=== PATIENT | male | born 1930 | race Caucasian/White ===

== ENCOUNTER 2018-01-23 18:06 | Inpatient (IN) | payer MEDICARE ==
[~2018-01-23] VITALS: Ht 188 cm; Wt 75.0 kg
[2018-01-23] MEDS: oseltamivir 30mg capsule PO SCH ×2 (08:00→20:00)
[~2018-01-23 18:06] MED LIST: AMIO200T57 PO; APIX2.5T PO; BESI5DRO EACHEYE; BROM3DRO RIGHTEYE; CARV-50 PO; CLOP75TA33 PO; FINA5TAB42 PO; FURO20TA4 PO; GEMF600T3 PO; LACT1CAP65 PO; LEVO50TA8 PO; LORA0.5T PO; MIRT15TA8 PO; PANT40TA4 PO; PENT400T2 PO; POTA10CA44 PO; PRED5DRO7 EACHEYE; TAMS0.4C32 PO; TEMA15CA5 PO; [UNRECOGNIZED DRUG - CODE] PO
[2018-01-23] MEDS ORDERED: normal saline 1000ML IV soln IV ONE (20:35)
[2018-01-23] MEDS ORDERED: levoFLOXACIN-Levaquin 750MG/D5 150 ML IV STA (20:37)
[2018-01-23] MEDS ORDERED: normal saline 1000ml 1,000 ML IV ONE (20:45)
[2018-01-23] MEDS ORDERED: acetaminophen 325mg tablet PO ONE (20:45)
[2018-01-23 21:01] LABS: BASOPHILS % (AUTO) 0.1 % (0-1); EOSINOPHILS # (AUTO) 0.2 X10'3 (0-0.9); EOSINOPHILS % (AUTO) 1.4 % (0-6); HEMATOCRIT 38.3 % (42.0-52.0); HEMOGLOBIN 13.1 g/dl (14.0-17.9); LYMPHOCYTES # (AUTO) 0.8 X10'3 (1.1-4.8); MEAN CORPUSCULAR HEMOGLOBIN 31.6 PG (27.0-31.0); MEAN CORPUSCULAR HGB CONC 34.3 % (33.0-36.5); MEAN CORPUSCULAR VOLUME 92.2 FL (78-98); MEAN PLATELET VOLUME 8.9 FL (7.4-10.4); MONOCYTES # (AUTO) 0.5 X10'3 (0-0.9); MONOCYTES % (AUTO) 4.4 % (2-12); NEUTROPHILS # (AUTO) 10.1 X10'3 (1.8-7.7); NEUTROPHILS % (AUTO) 87.1 % (42-75); PLATELET COUNT 219 X10'3 (140-440); RED BLOOD COUNT 4.15 X10'6 (4.70-6.10); RED CELL DISTRIBUTION WIDTH 16.9 % (11.5-14.5); WHITE BLOOD COUNT 11.6 X10'3 (4.5-11.0)
[2018-01-23 21:15] LABS: PARTIAL THROMBOPLASTIN TIME 27 SECONDS (22-32); PROTHROMBIN TIME 10.7 SECONDS (9.0-12.0)
[2018-01-23 21:17] LABS: ALANINE AMINOTRANSFERASE 38 U/L (12-78); ALBUMIN 3.7 G/DL (3.4-5.0); ALBUMIN/GLOBULIN RATIO 0.9 (1.1-1.5); ALKALINE PHOSPHATASE 159 IU/L (46-116); ANION GAP 10 (8-16); ASPARTATE AMINO TRANSFERASE 33 U/L (10-37); BILIRUBIN,TOTAL 0.4 MG/DL (0.1-1.0); BLOOD UREA NITROGEN 20 MG/DL (7-18); BUN/CREATININE RATIO 15.4 (5.4-32.0); CALCIUM 8.7 MG/DL (8.5-10.1); CHLORIDE 103 MMOL/L (99-107); GLUCOSE 118 MG/DL (70-104); MAGNESIUM 1.9 MG/DL (1.5-2.4); POTASSIUM 3.7 MMOL/L (3.5-5.1); SODIUM 142 MMOL/L (135-145); TOTAL CARBON DIOXIDE 29.3 MMOL/L (24-32); TOTAL PROTEIN 7.7 G/DL (6.4-8.2); eGFR 52 ML/MIN
[2018-01-23] MEDS ORDERED: AMIO200T57 PO (22:53)
[2018-01-23] MEDS ORDERED: DIGO125T PO (23:00)
[2018-01-23] MEDS ORDERED: FISH12002 PO (23:00)
[2018-01-23] MEDS ORDERED: GABA-532 PO (23:00)
[2018-01-23] MEDS ORDERED: CARV-50 PO (23:00)
[2018-01-23] MEDS ORDERED: GABA600T2 PO (23:00)
[2018-01-23] MEDS ORDERED: FINA5TAB11 PO (23:00)
[2018-01-23] MEDS ORDERED: MULT-1085 PO (23:00)
[2018-01-23] MEDS ORDERED: TEMA30CA5 PO (23:00)
[2018-01-23] MEDS ORDERED: ASPI-611 PO (23:00)
[2018-01-23] MEDS ORDERED: acetaminophen 325mg tablet PO PRN ×2 (23:05)
[2018-01-23] MEDS ORDERED: ondansetron/PF 4mg/2ml inj IV PRN (23:05)
[2018-01-23] MEDS: normal saline 1000ml 1,000 ML IV SCH (23:10)
[2018-01-23] MEDS: OMEGA-3/DHA/EPA/FISH OIL 1 EACH CAPSULE.DR PO SCH (23:25)
[2018-01-23] MEDS ORDERED: oseltamivir phos 75mg capsule PO ONE (23:40)
[2018-01-24] MEDS ORDERED: oseltamivir phos 75mg capsule PO ONE (01:27)
[2018-01-24 02:43] LABS: CLARITY,URINE Clear (Clear); COLOR,URINE Yellow (Yellow); GLUCOSE, URINE Negative (Neg); KETONES,URINE Negative (Neg); LEUKOCYTE ESTERASE ,URINE Negative (Neg); NITRITES, URINE Negative (Neg); OCCULT BLOOD,URINE Negative (Neg); PROTEIN,URINE Negative (Neg)
[2018-01-24 02:53] LABS: UA COLLECTION TYPE URINAL
[2018-01-24 06:31] LABS: BASOPHILS % (AUTO) 0.6 % (0-1); EOSINOPHILS % (AUTO) 0.2 % (0-6); HEMATOCRIT 33.1 % (42.0-52.0); HEMOGLOBIN 11.2 g/dl (14.0-17.9); LYMPHOCYTES # (AUTO) 0.9 X10'3 (1.1-4.8); LYMPHOCYTES % (AUTO) 11.8 % (21-51); MEAN CORPUSCULAR HEMOGLOBIN 31.4 PG (27.0-31.0); MEAN CORPUSCULAR HGB CONC 33.8 % (33.0-36.5); MEAN CORPUSCULAR VOLUME 92.9 FL (78-98); MEAN PLATELET VOLUME 8.9 FL (7.4-10.4); MONOCYTES # (AUTO) 0.5 X10'3 (0-0.9); MONOCYTES % (AUTO) 6.2 % (2-12); NEUTROPHILS # (AUTO) 6.3 X10'3 (1.8-7.7); NEUTROPHILS % (AUTO) 81.2 % (42-75); PLATELET COUNT 180 X10'3 (140-440); RED BLOOD COUNT 3.57 X10'6 (4.70-6.10); RED CELL DISTRIBUTION WIDTH 16.5 % (11.5-14.5); WHITE BLOOD COUNT 7.8 X10'3 (4.5-11.0)
[2018-01-24 06:43] LABS: ALBUMIN 2.7 G/DL (3.4-5.0); ANION GAP 9 (8-16); BLOOD UREA NITROGEN 17 MG/DL (7-18); CALCIUM 8.1 MG/DL (8.5-10.1); CHLORIDE 107 MMOL/L (99-107); CREATININE 1.06 MG/DL (0.60-1.10); GLUCOSE 120 MG/DL (70-104); POTASSIUM 3.3 MMOL/L (3.5-5.1); SODIUM 142 MMOL/L (135-145); TOTAL CARBON DIOXIDE 26.5 MMOL/L (24-32); eGFR 66 ML/MIN
[2018-01-24 07:30] VITALS: BP 151/66
[2018-01-24] MEDS: lactobacillus rhamnosus 10,000 MMU CELLS/CAPSULE PO SCH ×2 (08:00→20:03)
[2018-01-24 10:00] VITALS: BP 137/93
[2018-01-24] MEDS: levoTHYROXINE 25mcg tablet PO SCH (10:39)
[2018-01-24] MEDS: aspirin 81mg tablet.DR PO SCH (10:40)
[2018-01-24] MEDS: amiodarone 200mg tablet PO SCH ×2 (10:40→20:03)
[2018-01-24] MEDS: OMEGA-3/DHA/EPA/FISH OIL 1 EACH CAPSULE.DR PO SCH (10:40)
[2018-01-24] MEDS: carVEDilol 12.5mg tablet PO SCH ×2 (10:40→20:05)
[2018-01-24] MEDS: finasteride 5mg tablet PO SCH (10:41)
[2018-01-24] MEDS: gemfibrozil 600mg tablet PO SCH ×2 (10:41→20:05)
[2018-01-24] MEDS: clopidogrel 75mg tablet PO SCH (10:41)
[2018-01-24] MEDS: pantoprazole 40mg Tablet.DR PO SCH (10:42)
[2018-01-24] MEDS: digoxin 125mcg (0.125mg) tablet PO SCH (10:56)
[2018-01-24] MEDS: benzocaine/menthol oral lozeng 1 EACH BOX MM PRN ×2 (11:37→11:38)
[2018-01-24] MEDS: oseltamivir 30mg capsule PO SCH ×2 (11:37→20:05)
[2018-01-24 18:00] VITALS: BP 144/51
[2018-01-24] MEDS ORDERED: potassium Cl 40MEQ/NS 500ml 500 ML IV PRN ×2 (18:55)
[2018-01-24] MEDS ORDERED: magnesium Cl slow-release 64mg tablet PO PRN (18:55)
[2018-01-24] MEDS ORDERED: potassium Cl 20 mEq SR tablet PO PRN (18:55)
[2018-01-24] MEDS ORDERED: magnesium 4gm in 100ml NS 100 ML IV PRN (18:55)
[2018-01-24] MEDS ORDERED: magnesium 2GM in 50ml NS 50 ML IV PRN (18:55)
[2018-01-24] MEDS: normal saline 1000ml 1,000 ML IV SCH (20:03)
[2018-01-24] MEDS: potassium Cl 20 mEq SR tablet PO PRN (20:04)
[2018-01-24] MEDS: mirtazapine 15mg tablet PO SCH (20:05)
[2018-01-24] MEDS ORDERED: levoFLOXACIN-Levaquin 500mg/D5 100 ML IV SCH (21:00)
[2018-01-24 22:00] VITALS: BP 160/58
[2018-01-25] MEDS ORDERED: Melatonin 3mg tablet PO PRN (00:45)
[2018-01-25] MEDS: potassium Cl 20 mEq SR tablet PO PRN (01:33)
[2018-01-25] MEDS ORDERED: metoclopramide 5 mg/ml inj IV PRN (03:20)
[2018-01-25 05:31] LABS: BASOPHILS % (AUTO) 0.4 % (0-1); EOSINOPHILS # (AUTO) 0.1 X10'3 (0-0.9); EOSINOPHILS % (AUTO) 1.3 % (0-6); HEMATOCRIT 35.6 % (42.0-52.0); LYMPHOCYTES # (AUTO) 0.6 X10'3 (1.1-4.8); LYMPHOCYTES % (AUTO) 6.1 % (21-51); MEAN CORPUSCULAR HEMOGLOBIN 31.5 PG (27.0-31.0); MEAN CORPUSCULAR HGB CONC 33.8 % (33.0-36.5); MEAN PLATELET VOLUME 8.9 FL (7.4-10.4); MONOCYTES # (AUTO) 0.4 X10'3 (0-0.9); MONOCYTES % (AUTO) 3.9 % (2-12); NEUTROPHILS # (AUTO) 8.6 X10'3 (1.8-7.7); NEUTROPHILS % (AUTO) 88.3 % (42-75); PLATELET COUNT 192 X10'3 (140-440); RED BLOOD COUNT 3.83 X10'6 (4.70-6.10); RED CELL DISTRIBUTION WIDTH 16.1 % (11.5-14.5); WHITE BLOOD COUNT 9.7 X10'3 (4.5-11.0)
[2018-01-25 05:41] LABS: ALBUMIN 2.9 G/DL (3.4-5.0); ANION GAP 8 (8-16); BLOOD UREA NITROGEN 13 MG/DL (7-18); BUN/CREATININE RATIO 11.8 (5.4-32.0); CALCIUM 8.6 MG/DL (8.5-10.1); CHLORIDE 107 MMOL/L (99-107); GLUCOSE 163 MG/DL (70-104); MAGNESIUM 1.8 MG/DL (1.5-2.4); POTASSIUM 4.2 MMOL/L (3.5-5.1); SODIUM 141 MMOL/L (135-145); TOTAL CARBON DIOXIDE 26.3 MMOL/L (24-32); eGFR 63 ML/MIN
[2018-01-25 06:00] VITALS: BP 151/60
[2018-01-25] MEDS ORDERED: gabapentin 300mg capsule PO SCH ×2 (08:00→21:00)
[2018-01-25 10:00] VITALS: BP 132/53
[2018-01-25] MEDS: pantoprazole 40mg Tablet.DR PO SCH (10:13)
[2018-01-25] MEDS: oseltamivir 30mg capsule PO SCH ×2 (10:13→20:46)
[2018-01-25] MEDS: levoTHYROXINE 25mcg tablet PO SCH (10:14)
[2018-01-25] MEDS: lactobacillus rhamnosus 10,000 MMU CELLS/CAPSULE PO SCH ×2 (10:14→20:46)
[2018-01-25] MEDS: aspirin 81mg tablet.DR PO SCH (10:14)
[2018-01-25] MEDS: gabapentin 300mg capsule PO SCH ×2 (10:14→15:21)
[2018-01-25] MEDS: gemfibrozil 600mg tablet PO SCH ×2 (10:14→20:46)
[2018-01-25] MEDS: OMEGA-3/DHA/EPA/FISH OIL 1 EACH CAPSULE.DR PO SCH (10:14)
[2018-01-25] MEDS: carVEDilol 12.5mg tablet PO SCH ×2 (10:15→20:46)
[2018-01-25] MEDS: finasteride 5mg tablet PO SCH (10:15)
[2018-01-25] MEDS: clopidogrel 75mg tablet PO SCH (10:15)
[2018-01-25] MEDS: amiodarone 200mg tablet PO SCH ×2 (10:16→20:46)
[2018-01-25] MEDS: digoxin 125mcg (0.125mg) tablet PO SCH (10:23)
[2018-01-25 18:50] VITALS: BP 144/64
[2018-01-25 20:00] VITALS: BP 151/62
[2018-01-25] MEDS: mirtazapine 15mg tablet PO SCH (20:46)
[2018-01-25] MEDS: normal saline 1000ml 1,000 ML IV SCH (20:47)
[2018-01-26] MEDS: gabapentin 300mg capsule PO SCH ×3 (00:35→20:42)
[2018-01-26 06:00] VITALS: BP 140/69
[2018-01-26 06:02] LABS: BASOPHILS % (AUTO) 0.4 % (0-1); EOSINOPHILS % (AUTO) 0.8 % (0-6); HEMATOCRIT 32.4 % (42.0-52.0); HEMOGLOBIN 11.1 g/dl (14.0-17.9); LYMPHOCYTES # (AUTO) 0.9 X10'3 (1.1-4.8); LYMPHOCYTES % (AUTO) 18.7 % (21-51); MEAN CORPUSCULAR HEMOGLOBIN 31.7 PG (27.0-31.0); MEAN CORPUSCULAR HGB CONC 34.3 % (33.0-36.5); MEAN CORPUSCULAR VOLUME 92.4 FL (78-98); MEAN PLATELET VOLUME 8.8 FL (7.4-10.4); MONOCYTES # (AUTO) 0.5 X10'3 (0-0.9); MONOCYTES % (AUTO) 10.4 % (2-12); NEUTROPHILS # (AUTO) 3.5 X10'3 (1.8-7.7); NEUTROPHILS % (AUTO) 69.7 % (42-75); PLATELET COUNT 176 X10'3 (140-440); RED BLOOD COUNT 3.51 X10'6 (4.70-6.10); WHITE BLOOD COUNT 5.1 X10'3 (4.5-11.0)
[2018-01-26 06:19] LABS: ALBUMIN 2.6 G/DL (3.4-5.0); ANION GAP 8 (8-16); BLOOD UREA NITROGEN 16 MG/DL (7-18); BUN/CREATININE RATIO 14.7 (5.4-32.0); CALCIUM 8.2 MG/DL (8.5-10.1); CHLORIDE 107 MMOL/L (99-107); CREATININE 1.09 MG/DL (0.60-1.10); GLUCOSE 126 MG/DL (70-104); MAGNESIUM 1.9 MG/DL (1.5-2.4); POTASSIUM 3.7 MMOL/L (3.5-5.1); SODIUM 141 MMOL/L (135-145); TOTAL CARBON DIOXIDE 25.7 MMOL/L (24-32); eGFR 64 ML/MIN
[2018-01-26] MEDS: clopidogrel 75mg tablet PO SCH (09:18)
[2018-01-26] MEDS: digoxin 125mcg (0.125mg) tablet PO SCH (09:18)
[2018-01-26] MEDS: finasteride 5mg tablet PO SCH (09:18)
[2018-01-26] MEDS: oseltamivir 30mg capsule PO SCH ×2 (09:18→20:41)
[2018-01-26] MEDS: levoTHYROXINE 25mcg tablet PO SCH (09:18)
[2018-01-26] MEDS: pantoprazole 40mg Tablet.DR PO SCH (09:19)
[2018-01-26] MEDS: aspirin 81mg tablet.DR PO SCH (09:19)
[2018-01-26] MEDS: OMEGA-3/DHA/EPA/FISH OIL 1 EACH CAPSULE.DR PO SCH (09:19)
[2018-01-26] MEDS: lactobacillus rhamnosus 10,000 MMU CELLS/CAPSULE PO SCH ×2 (09:20→20:41)
[2018-01-26] MEDS: carVEDilol 12.5mg tablet PO SCH ×2 (09:20→20:42)
[2018-01-26] MEDS: gemfibrozil 600mg tablet PO SCH ×2 (09:20→20:41)
[2018-01-26] MEDS: amiodarone 200mg tablet PO SCH ×2 (09:20→20:41)
[2018-01-26 10:00] VITALS: BP 132/65
[2018-01-26] MEDS: levoFLOXACIN 500mg tablet PO SCH (11:42)
[2018-01-26 19:13] VITALS: BP 145/61
[2018-01-26] MEDS: mirtazapine 15mg tablet PO SCH (20:40)
[2018-01-26] MEDS: docusate sod 100mg capsule PO SCH (20:41)
[2018-01-26 22:33] VITALS: BP 154/66
[2018-01-27 05:00] VITALS: BP 157/71
[2018-01-27 06:14] LABS: BASOPHILS % (AUTO) 0.6 % (0-1); EOSINOPHILS # (AUTO) 0.1 X10'3 (0-0.9); EOSINOPHILS % (AUTO) 2.2 % (0-6); HEMOGLOBIN 11.5 g/dl (14.0-17.9); LYMPHOCYTES # (AUTO) 1.2 X10'3 (1.1-4.8); LYMPHOCYTES % (AUTO) 36.3 % (21-51); MEAN CORPUSCULAR HEMOGLOBIN 31.3 PG (27.0-31.0); MEAN CORPUSCULAR HGB CONC 33.9 % (33.0-36.5); MEAN CORPUSCULAR VOLUME 92.3 FL (78-98); MEAN PLATELET VOLUME 8.4 FL (7.4-10.4); MONOCYTES # (AUTO) 0.5 X10'3 (0-0.9); MONOCYTES % (AUTO) 13.3 % (2-12); NEUTROPHILS # (AUTO) 1.6 X10'3 (1.8-7.7); NEUTROPHILS % (AUTO) 47.6 % (42-75); PLATELET COUNT 181 X10'3 (140-440); RED BLOOD COUNT 3.68 X10'6 (4.70-6.10); RED CELL DISTRIBUTION WIDTH 16.6 % (11.5-14.5); WHITE BLOOD COUNT 3.4 X10'3 (4.5-11.0)
[2018-01-27 06:19] LABS: ALBUMIN 2.5 G/DL (3.4-5.0); ANION GAP 5 (8-16); BLOOD UREA NITROGEN 15 MG/DL (7-18); CALCIUM 8.4 MG/DL (8.5-10.1); CHLORIDE 111 MMOL/L (99-107); CREATININE 1.07 MG/DL (0.60-1.10); GLUCOSE 132 MG/DL (70-104); MAGNESIUM 2.1 MG/DL (1.5-2.4); POTASSIUM 3.6 MMOL/L (3.5-5.1); SODIUM 145 MMOL/L (135-145); TOTAL CARBON DIOXIDE 29.1 MMOL/L (24-32); eGFR 66 ML/MIN
[2018-01-27] MEDS: normal saline 1000ml 1,000 ML IV SCH ×2 (07:10→10:27)
[2018-01-27] MEDS: aspirin 81mg tablet.DR PO SCH (07:37)
[2018-01-27] MEDS: clopidogrel 75mg tablet PO SCH (07:37)
[2018-01-27] MEDS: finasteride 5mg tablet PO SCH (07:37)
[2018-01-27] MEDS: OMEGA-3/DHA/EPA/FISH OIL 1 EACH CAPSULE.DR PO SCH (07:37)
[2018-01-27] MEDS: levoTHYROXINE 25mcg tablet PO SCH (07:37)
[2018-01-27] MEDS: pantoprazole 40mg Tablet.DR PO SCH (07:38)
[2018-01-27] MEDS: docusate sod 100mg capsule PO SCH ×2 (07:38→20:31)
[2018-01-27] MEDS: oseltamivir 30mg capsule PO SCH (07:38)
[2018-01-27] MEDS: carVEDilol 12.5mg tablet PO SCH ×2 (07:38→20:32)
[2018-01-27] MEDS: amiodarone 200mg tablet PO SCH ×2 (07:38→20:32)
[2018-01-27] MEDS: digoxin 125mcg (0.125mg) tablet PO SCH (07:38)
[2018-01-27] MEDS: gabapentin 300mg capsule PO SCH ×3 (07:38→15:57)
[2018-01-27] MEDS: gemfibrozil 600mg tablet PO SCH ×2 (07:38→20:32)
[2018-01-27] MEDS: lactobacillus rhamnosus 10,000 MMU CELLS/CAPSULE PO SCH ×2 (07:38→20:31)
[2018-01-27 09:56] VITALS: BP 140/59
[2018-01-27] MEDS: levoFLOXACIN 500mg tablet PO SCH (10:27)
[2018-01-27 18:00] VITALS: BP 185/79
[2018-01-27] MEDS: enalaprilat dihydrate 2.5mg/2ml vial IV PRN (18:07)
[2018-01-27] MEDS ORDERED: oseltamivir phos 75mg capsule PO SCH (20:00)
[2018-01-27] MEDS ORDERED: magnesium hydroxide 30ml (MOM) UD suspension PO PRN (20:15)
[2018-01-27] MEDS: mirtazapine 15mg tablet PO SCH (20:32)
[2018-01-27 23:00] VITALS: BP 177/74
[2018-01-28] MEDS: gabapentin 300mg capsule PO SCH ×4 (00:23→23:57)
[2018-01-28] MEDS: normal saline 1000ml 1,000 ML IV SCH ×2 (03:10→06:08)
[2018-01-28] MEDS: ipratropium/albuterol 3ml nebule NEB PRN ×2 (03:37→07:33)
[2018-01-28 05:00] VITALS: BP 136/67
[2018-01-28 05:53] LABS: BASOPHILS % (AUTO) 0.4 % (0-1); EOSINOPHILS # (AUTO) 0.1 X10'3 (0-0.9); EOSINOPHILS % (AUTO) 2.4 % (0-6); HEMATOCRIT 33.1 % (42.0-52.0); HEMOGLOBIN 11.2 g/dl (14.0-17.9); LYMPHOCYTES # (AUTO) 1.2 X10'3 (1.1-4.8); LYMPHOCYTES % (AUTO) 31.1 % (21-51); MEAN CORPUSCULAR HEMOGLOBIN 31.5 PG (27.0-31.0); MEAN CORPUSCULAR HGB CONC 33.9 % (33.0-36.5); MEAN CORPUSCULAR VOLUME 92.8 FL (78-98); MEAN PLATELET VOLUME 8.1 FL (7.4-10.4); MONOCYTES # (AUTO) 0.4 X10'3 (0-0.9); MONOCYTES % (AUTO) 9.7 % (2-12); NEUTROPHILS # (AUTO) 2.3 X10'3 (1.8-7.7); NEUTROPHILS % (AUTO) 56.4 % (42-75); PLATELET COUNT 214 X10'3 (140-440); RED BLOOD COUNT 3.57 X10'6 (4.70-6.10); RED CELL DISTRIBUTION WIDTH 16.4 % (11.5-14.5)
[2018-01-28 06:11] LABS: ALBUMIN 2.6 G/DL (3.4-5.0); ANION GAP 10 (8-16); BLOOD UREA NITROGEN 14 MG/DL (7-18); BUN/CREATININE RATIO 13.7 (5.4-32.0); CALCIUM 8.4 MG/DL (8.5-10.1); CHLORIDE 109 MMOL/L (99-107); CREATININE 1.02 MG/DL (0.60-1.10); GLUCOSE 122 MG/DL (70-104); MAGNESIUM 2.1 MG/DL (1.5-2.4); POTASSIUM 3.7 MMOL/L (3.5-5.1); SODIUM 148 MMOL/L (135-145); TOTAL CARBON DIOXIDE 28.9 MMOL/L (24-32); eGFR 69 ML/MIN
[2018-01-28] MEDS: OMEGA-3/DHA/EPA/FISH OIL 1 EACH CAPSULE.DR PO SCH (07:18)
[2018-01-28] MEDS: amiodarone 200mg tablet PO SCH ×2 (07:18→20:05)
[2018-01-28] MEDS: gemfibrozil 600mg tablet PO SCH ×2 (07:18→20:05)
[2018-01-28] MEDS: levoTHYROXINE 25mcg tablet PO SCH (07:19)
[2018-01-28] MEDS: digoxin 125mcg (0.125mg) tablet PO SCH (07:19)
[2018-01-28] MEDS: docusate sod 100mg capsule PO SCH ×2 (07:19→20:05)
[2018-01-28] MEDS: pantoprazole 40mg Tablet.DR PO SCH (07:19)
[2018-01-28] MEDS: lactobacillus rhamnosus 10,000 MMU CELLS/CAPSULE PO SCH ×2 (07:20→20:05)
[2018-01-28] MEDS: carVEDilol 12.5mg tablet PO SCH ×2 (07:20→20:05)
[2018-01-28] MEDS: finasteride 5mg tablet PO SCH (07:20)
[2018-01-28] MEDS: aspirin 81mg tablet.DR PO SCH (07:20)
[2018-01-28] MEDS: clopidogrel 75mg tablet PO SCH (07:20)
[2018-01-28 10:00] VITALS: BP 116/54
[2018-01-28] MEDS: levoFLOXACIN 500mg tablet PO SCH (11:17)
[2018-01-28] MEDS: enalaprilat dihydrate 2.5mg/2ml vial IV PRN (17:42)
[2018-01-28 18:00] VITALS: BP 176/76
[2018-01-28] MEDS: mirtazapine 15mg tablet PO SCH (20:05)
[2018-01-28 22:00] VITALS: BP 183/78
[2018-01-28 23:26] VITALS: BP 194/80
[2018-01-28] MEDS ORDERED: hydrALAZINE 20mg/ml inj. IV PRN (23:45)
[2018-01-29 00:47] VITALS: BP 132/52
[2018-01-29] MEDS: ipratropium/albuterol 3ml nebule NEB PRN ×2 (01:03→07:51)
[2018-01-29] MEDS: normal saline 1000ml 1,000 ML IV SCH (01:14)
[2018-01-29 02:00] VITALS: BP 145/53
[2018-01-29 05:00] VITALS: BP 142/59
[2018-01-29 06:03] LABS: MAGNESIUM 2.1 MG/DL (1.5-2.4); POTASSIUM 3.6 MMOL/L (3.5-5.1)
[2018-01-29] MEDS: amiodarone 200mg tablet PO SCH (07:24)
[2018-01-29] MEDS: carVEDilol 12.5mg tablet PO SCH (07:24)
[2018-01-29] MEDS: clopidogrel 75mg tablet PO SCH (07:24)
[2018-01-29] MEDS: aspirin 81mg tablet.DR PO SCH (07:24)
[2018-01-29] MEDS: levoTHYROXINE 25mcg tablet PO SCH (07:25)
[2018-01-29] MEDS: gabapentin 300mg capsule PO SCH (07:25)
[2018-01-29] MEDS: OMEGA-3/DHA/EPA/FISH OIL 1 EACH CAPSULE.DR PO SCH (07:25)
[2018-01-29] MEDS: pantoprazole 40mg Tablet.DR PO SCH (07:25)
[2018-01-29] MEDS: finasteride 5mg tablet PO SCH (07:25)
[2018-01-29] MEDS: lactobacillus rhamnosus 10,000 MMU CELLS/CAPSULE PO SCH (07:25)
[2018-01-29] MEDS: digoxin 125mcg (0.125mg) tablet PO SCH (07:25)
[2018-01-29] MEDS: docusate sod 100mg capsule PO SCH (07:26)
[2018-01-29] MEDS: gemfibrozil 600mg tablet PO SCH (07:26)
[2018-01-29 09:04] LABS: ALBUMIN 2.4 G/DL (3.4-5.0); ANION GAP 8 (8-16); BLOOD UREA NITROGEN 16 MG/DL (7-18); CALCIUM 8.1 MG/DL (8.5-10.1); CHLORIDE 109 MMOL/L (99-107); GLUCOSE 115 MG/DL (70-104); SODIUM 145 MMOL/L (135-145); TOTAL CARBON DIOXIDE 27.9 MMOL/L (24-32); eGFR 71 ML/MIN
[2018-01-29 10:00] VITALS: BP 141/63
[2018-01-29] MEDS: levoFLOXACIN 500mg tablet PO SCH (11:41)
== END 2018-01-29 14:10 | DRG 871 ==
LOC: ER 18:07 → ED HOLD 23:02 → ORTHO 4S 01-24 07:30
PROVIDERS: ADMIT Family Medicine; ATTEND Internal Medicine
PROC: 4B02XSZ Measurement of Cardiac Pacemaker, External Approach (ICD-10-PCS; principal; 2018-01-24)
DX: A41.9 Sepsis, unspecified organism (principal); J18.9 Pneumonia, unspecified organism; N18.4 Chronic kidney disease, stage 4 (severe); I48.0 Paroxysmal atrial fibrillation; I69.351 Hemiplegia and hemiparesis following cerebral infarction affecting right dominant side; N17.9 Acute kidney failure, unspecified; J44.0 Chronic obstructive pulmonary disease with (acute) lower respiratory infection; I73.9 Peripheral vascular disease, unspecified; E03.9 Hypothyroidism, unspecified; E78.5 Hyperlipidemia, unspecified; I25.10 Atherosclerotic heart disease of native coronary artery without angina pectoris; I12.9 Hypertensive chronic kidney disease with stage 1 through stage 4 chronic kidney disease, or unspecified chronic kidney disease; J10.1 Influenza due to other identified influenza virus with other respiratory manifestations; E87.6 Hypokalemia; K21.9 Gastro-esophageal reflux disease without esophagitis; F32.9 Major depressive disorder, single episode, unspecified; M10.9 Gout, unspecified; K59.00 Constipation, unspecified; N40.0 Benign prostatic hyperplasia without lower urinary tract symptoms; T50.2X5A Adverse effect of carbonic-anhydrase inhibitors, benzothiadiazides and other diuretics, initial encounter; Z95.5 Presence of coronary angioplasty implant and graft; Z95.0 Presence of cardiac pacemaker; Z90.49 Acquired absence of other specified parts of digestive tract; Z98.49 Cataract extraction status, unspecified eye; Z79.02 Long term (current) use of antithrombotics/antiplatelets; Z79.82 Long term (current) use of aspirin; Z88.2 Allergy status to sulfonamides; Z88.6 Allergy status to analgesic agent; Z88.8 Allergy status to other drugs, medicaments and biological substances; Z87.891 Personal history of nicotine dependence; Z80.9 Family history of malignant neoplasm, unspecified; Z80.6 Family history of leukemia; Y92.89 Other specified places as the place of occurrence of the external cause
CPT/HCPCS: 36415; 71045; 80048; 80053; 80162; 81003; 83605; 83735; 84145; 84439; 84443; 85025; 85610; 85730; 87040; 87070; 87502; 87503; 94640; 94760; 96365; 96366; 97110; 97116; 97162; 97530; 99285; A6257; G9035; J0360; J1956; J2405; J2765; J7030